=== PATIENT | female | born 1950 | race Caucasian/White ===

== ENCOUNTER → 2024-02-26 11:16 | Outpatient (REF) | payer MEDICARE, OTHER, SELFPAY | LOC: RCS 11:16 | PROVIDERS: ATTENDING PHYSICIAN Family Medicine | DX: Z01.810 Encounter for preprocedural cardiovascular examination (principal) | CPT/HCPCS: 93005 ==

== ENCOUNTER → 2024-09-16 09:54 | Outpatient (REF) | payer MEDICARE, OTHER, SELFPAY | LOC: RAD 09:54 | PROVIDERS: ATTENDING PHYSICIAN Family Medicine | DX: M85.89 Other specified disorders of bone density and structure, multiple sites (principal) | CPT/HCPCS: 77080 ==